=== PATIENT | male | born 1990 | race Caucasian/White ===

== ENCOUNTER 2019-07-01 15:57 | Outpatient (CLI) | payer OTHER | END 2019-07-01 23:59 | disposition home or self-care (01) | LOC: RAD 15:57 | PROVIDERS: ATTEND Nurse Practitioner Family | DX: K21.9 Gastro-esophageal reflux disease without esophagitis (principal); R10.11 Right upper quadrant pain; Q63.1 Lobulated, fused and horseshoe kidney | CPT/HCPCS: 76700 ==